=== PATIENT | male | born 1990 | race Two or more races ===

== ENCOUNTER 2021-09-23 13:25 | Emergency (ER) | payer BC ==
[~2021-09-23] VITALS: Ht 180.3 cm; Wt 90.7 kg
[2021-09-23 14:44] LABS: Basophils # (auto) 0.1 10 ^3/uL (0-0.2); Basophils % (auto) 1.6 % (0.0-2.0); Eosinophils # (auto) 0.1 10 ^3/uL (0-0.8); Eosinophils % (auto) 1.5 % (0.0-7.0); Hematocrit 45.1 % (41.0-53.0); Hemoglobin 15.6 g/dL (13.5-17.5); Lymphocytes # (auto) 2.6 10 ^3/uL (0.4-5.4); Lymphocytes % (auto) 31.4 % (10.0-50.0); Mean Corpuscular Hemoglobin 29.7 pg (28.0-32.0); Mean Corpuscular Hgb Conc. 34.6 g/dL (32.0-36.0); Mean Corpuscular Volume 85.7 fL (80.0-100.0); Monocytes # (auto) 0.6 10 ^3/uL (0-1.3); Neutrophils # (auto) 4.9 10 ^3/uL (1.6-8.6); Neutrophils % (auto) 58.5 % (37.0-80.0); Nucleated Red Blood Cells % 0.5 %; Red Blood Cells 5.26 10^6/uL (4.5-5.90); Red Cell Distribution Width 12.7 % (11.8-14.3); White Blood Cell 8.3 10^3/uL (4.4-10.8)
[2021-09-23 15:09] LABS: Albumin 4.3 g/dL (3.4-5.0); BUN/Creatinine Ratio 15.5; Calcium 9.4 mg/dL (8.5-10.1); Potassium 4.3 mmol/L (3.5-5.1)
[2021-09-23 15:12] LABS: Bilirubin, Total 0.5 mg/dL (0.2-1.0); Total Protein 7.2 g/dL (6.4-8.2)
[2021-09-23 16:26] VITALS: BP 119/75
== END 2021-09-23 17:58 | disposition home or self-care (01) ==
LOC: ER 13:25
DX: R20.0 Anesthesia of skin (principal)
CPT/HCPCS: 36415; 70450; 80053; 85025